=== PATIENT | female | born 1935 | race Caucasian/White ===

== ENCOUNTER 2019-05-21 14:38 | Inpatient (IN) | payer OTHER ==
[~2019-05-21] VITALS: Ht 165.1 cm; Wt 79.4 kg
[~2019-05-21 14:38] MED LIST changes: -ACET500 PO; -CORLANOR7.5 MG PO; -Calcium Carbon500 MG PO; -IBUP200 PO
[2019-05-21] MEDS ORDERED: CORLANOR7.5 MG PO (14:50)
[2019-05-21 18:27] LABS: Ferritin, Serum 24 ng/mL (8-252); Iron Serum 16 ug/dL (50-170)
--- NOTE | 2019-05-21 19:14 | NUR ---
SHIFT SUMMARY PT ARRIVED ON MEDICAL FLOOR AT 1830, DENIES PAIN. EATING DINNER, PT ORIENTED TO FLOOR, INDEPENDENT IN ROOM. CALL LIGHT IN REACH, TM
[2019-05-21] MEDS ORDERED: ACET500 PO (20:03)
[2019-05-21] MEDS ORDERED: IBUP200 PO (20:04)
[2019-05-21] MEDS ORDERED: Calcium Carbon500 MG PO (20:04)
[2019-05-21 20:09] LABS: BASOPHILS ABSOLUTE AUTO 0.07 K/mm3 (0.00-0.23); BASOPHILS PERCENT AUTO 1 % (0-2); EOSINOPHILS ABSOLUTE AUTO 0.12 K/mm3 (0.00-0.68); EOSINOPHILS PERCENT AUTO 1 % (0-6); Hematocrit 28.3 % (33.0-51.0); Hemoglobin 8.6 g/dL (11.5-16.0); IMMATURE GRAN ABSOLUTE AUTO 0.06 K/mm3 (0.00-0.10); IMMATURE GRAN PERCENT AUTO 1 % (0-1); LYMPHOCYTES ABSOLUTE AUTO 1.12 K/mm3 (0.84-5.20); LYMPHOCYTES PERCENT AUTO 12 % (21-46); MONOCYTES ABSOLUTE AUTO 0.61 K/mm3 (0.16-1.47); MONOCYTES PERCENT AUTO 7 % (4-13); Mean Corpuscular HGB 26.9 pg (26.0-34.0); Mean Corpuscular HGB Conc 30.4 g/dL (31.5-36.5); Mean Corpuscular Volume 88 fL (80-100); Mean Platelet Volume 9.8 fL (9.1-12.4); NEUTROPHILS PERCENT AUTO 79 % (41-73); Platelet Count 315 K/mm3 (150-400); RDW Coefficient Variation 14.6 % (11.7-14.2); RDW Standard Deviation 46.4 fL (35.1-46.3); White Blood Cell Count 9.38 K/mm3 (4.00-11.30)
--- NOTE | 2019-05-22 07:42 | NUR ---
SHIFT SUMMARY PATIENT ALERT AND ORIENTED. PACEMAKER HAS HEART PACED AT 81 ACCORDING TO GRAVEL HAULER. IV IN RIGHT AC PATENT AND FLUSHED. COMMUNITY YOUTH SECRETARY REPORTED LOW BP DURING MORNING VITALS, NOTIFIED CHARGE NURSE AND NOTIFIED ONCOMING NURSE OF THE ISSUE. BED IN LOWEST POSITION WITH WHEELS LOCKED. CALL LIGHT WITHIN REACH. REPORT GIVEN TO ONCOMING RN.
[2019-05-22 08:25] LABS: BASOPHILS ABSOLUTE AUTO 0.06 K/mm3 (0.00-0.23); BASOPHILS PERCENT AUTO 1 % (0-2); EOSINOPHILS ABSOLUTE AUTO 0.16 K/mm3 (0.00-0.68); EOSINOPHILS PERCENT AUTO 2 % (0-6); Hematocrit 26.3 % (33.0-51.0); IMMATURE GRAN ABSOLUTE AUTO 0.05 K/mm3 (0.00-0.10); IMMATURE GRAN PERCENT AUTO 1 % (0-1); LYMPHOCYTES ABSOLUTE AUTO 0.88 K/mm3 (0.84-5.20); LYMPHOCYTES PERCENT AUTO 11 % (21-46); MONOCYTES ABSOLUTE AUTO 0.52 K/mm3 (0.16-1.47); MONOCYTES PERCENT AUTO 6 % (4-13); Mean Corpuscular HGB 26.5 pg (26.0-34.0); Mean Corpuscular HGB Conc 30.4 g/dL (31.5-36.5); Mean Corpuscular Volume 87 fL (80-100); Mean Platelet Volume 9.7 fL (9.1-12.4); NEUTROPHILS ABSOLUTE AUTO 6.53 K/mm3 (1.96-9.15); NEUTROPHILS PERCENT AUTO 80 % (41-73); Platelet Count 302 K/mm3 (150-400); RDW Coefficient Variation 14.4 % (11.7-14.2); Red Blood Cell Count 3.02 M/mm3 (3.80-5.20)
[2019-05-22 08:48] LABS: Alanine Aminotransfer (ALT/SGP 18 U/L (12-78); Alk Phos 70 U/L (50-136); Anion Gap 7 mmol/L (6-16); Aspartate Aminotrans (AST/SGOT 15 U/L (12-37); Bilirubin, Total 0.7 mg/dL (0.1-1.0); Blood Urea Nitrogen 21 mg/dL (8-24); Bun/Creatinine Ratio 23.4 (12.0-20.0); CO2, Blood 27 mmol/L (21-32); Calcium, Blood 8.5 mg/dL (8.5-10.1); Chloride, Blood 106 mmol/L (98-108); Glomerular Filtration Rate >60 (60-); Glucose, Blood 88 mg/dL (70-99); Potassium, Blood 3.2 mmol/L (3.5-5.5); Sodium, Blood 140 mmol/L (136-145)
--- NOTE | 2019-05-22 11:51 | NUR ---
Echocardiogram completed.
--- NOTE | 2019-05-22 18:13 | NUR ---
Per admit trigger, I met with pt and family to offer information about advanced care planning. Dtr informs me that they have an Advanced Directive at home and plan on completeing it once pt is discharged. No concerns presented. Pt reports feeling hopeful for recovery. I will remain available.
--- NOTE | 2019-05-22 19:04 | NUR ---
SUMMARY: NO ACUTE CHANGE TODAY. VSS. A/O. PT REPORT SOB IS "MUCH BETTER", DENIED HAVING ANY TODAY. NO CHEST PAIN. TELE WNL. ECHO AND EKG REPEATED TODAY. DID TRANSFUSE 1 UNIT PRBC'S. PT TOLERATED WELL. NO ACUTE SAFETY CONCERNS AT THIS TIME.
[2019-05-23 05:39] LABS: BASOPHILS ABSOLUTE AUTO 0.08 K/mm3 (0.00-0.23); BASOPHILS PERCENT AUTO 1 % (0-2); EOSINOPHILS ABSOLUTE AUTO 0.25 K/mm3 (0.00-0.68); EOSINOPHILS PERCENT AUTO 3 % (0-6); Hematocrit 30.2 % (33.0-51.0); Hemoglobin 9.3 g/dL (11.5-16.0); IMMATURE GRAN ABSOLUTE AUTO 0.03 K/mm3 (0.00-0.10); IMMATURE GRAN PERCENT AUTO 0 % (0-1); LYMPHOCYTES ABSOLUTE AUTO 1.38 K/mm3 (0.84-5.20); LYMPHOCYTES PERCENT AUTO 17 % (21-46); MONOCYTES ABSOLUTE AUTO 0.65 K/mm3 (0.16-1.47); MONOCYTES PERCENT AUTO 8 % (4-13); Mean Corpuscular HGB 26.1 pg (26.0-34.0); Mean Corpuscular HGB Conc 30.8 g/dL (31.5-36.5); Mean Corpuscular Volume 85 fL (80-100); Mean Platelet Volume 9.7 fL (9.1-12.4); NEUTROPHILS ABSOLUTE AUTO 5.52 K/mm3 (1.96-9.15); NEUTROPHILS PERCENT AUTO 70 % (41-73); Platelet Count 322 K/mm3 (150-400); RDW Coefficient Variation 14.5 % (11.7-14.2); RDW Standard Deviation 44.7 fL (35.1-46.3); Red Blood Cell Count 3.57 M/mm3 (3.80-5.20); White Blood Cell Count 7.91 K/mm3 (4.00-11.30)
[2019-05-23 06:02] LABS: Bun/Creatinine Ratio 23.8 (12.0-20.0); Calcium, Blood 8.5 mg/dL (8.5-10.1); Creatinine, Blood 0.97 mg/dL (0.40-1.00); Magnesium, Blood 1.8 mg/dL (1.6-2.4); Potassium, Blood 3.4 mmol/L (3.5-5.5)
[2019-05-23 06:55] LABS: Stool Occult Blood Guaiac 1 Pos (Neg)
--- NOTE | 2019-05-23 07:30 | NUR ---
EOS: PT HAD AN UNEVENTFUL NIGHT TONIGHT. SHE DENIES PAIN, SOB, DIZZINESS, N/V/D, A VERY PLEASANT AND COOPERATIVE PATIENT. NO ACUTE CHANGES.
--- NOTE | 2019-05-23 13:21 | NUR ---
Pt. is doing much better , relaxed in bed and talking with her family visitors, offered prayers.
--- NOTE | 2019-05-23 18:52 | NUR ---
SHIFT SUMMARY PATIENT DENIES PAIN, NAUSEA, AND SHORTNESS OF BREATH. PATIENT UP INDEPENDENT IN ROOM. PATIENT OCCULT STOOL POSITIVE. PATIENT HAD CT OF ABDOMEN TODAY. FAMILY AT BEDSIDE. CALL LIGHT IN REACH.
[2019-05-24 05:35] LABS: BASOPHILS ABSOLUTE AUTO 0.07 K/mm3 (0.00-0.23); BASOPHILS PERCENT AUTO 1 % (0-2); EOSINOPHILS ABSOLUTE AUTO 0.27 K/mm3 (0.00-0.68); EOSINOPHILS PERCENT AUTO 4 % (0-6); Hematocrit 28.8 % (33.0-51.0); IMMATURE GRAN ABSOLUTE AUTO 0.03 K/mm3 (0.00-0.10); IMMATURE GRAN PERCENT AUTO 0 % (0-1); LYMPHOCYTES ABSOLUTE AUTO 1.36 K/mm3 (0.84-5.20); LYMPHOCYTES PERCENT AUTO 18 % (21-46); MONOCYTES ABSOLUTE AUTO 0.65 K/mm3 (0.16-1.47); MONOCYTES PERCENT AUTO 9 % (4-13); Mean Corpuscular HGB 26.6 pg (26.0-34.0); Mean Corpuscular HGB Conc 31.3 g/dL (31.5-36.5); Mean Corpuscular Volume 85 fL (80-100); Mean Platelet Volume 9.7 fL (9.1-12.4); NEUTROPHILS ABSOLUTE AUTO 5.18 K/mm3 (1.96-9.15); NEUTROPHILS PERCENT AUTO 69 % (41-73); Platelet Count 351 K/mm3 (150-400); RDW Coefficient Variation 14.5 % (11.7-14.2); RDW Standard Deviation 44.4 fL (35.1-46.3); Red Blood Cell Count 3.38 M/mm3 (3.80-5.20); White Blood Cell Count 7.56 K/mm3 (4.00-11.30)
--- NOTE | 2019-05-24 05:53 | NUR ---
SHIFT SUMMARY PT IS AN 84 Y/O FEMALE, ADMITTED FOR CHF EXACERBATION. SHE IS A&O X 4, AND INDEPENDENT IN THE ROOM. PT DENIED ANY COMPLAINTS OF PAIN, NAUSEA OR SOB AND SLEPT WELL DURING THE NIGHT. PT'S BP WAS LOW AT MIDNIGHT AND AM VITALS, IN THE 90S SYSTOLICALLY. ALL OTHER VITALS STABLE. NO OTHER ACUTE CHANGES IN PT CONDITION NOTED DURING THE NIGHT. WILL CONTINUE TO MONITOR AND TREAT PER EMAR UNTIL HAND OFF TO DAY SHIFT RN.
[2019-05-24 12:59] LABS: Stool Occult Blood Guaiac 1 Pos (Neg)
--- NOTE | 2019-05-24 14:11 | NUR ---
Pt. is doing well and may gfo home today offered prayers
[2019-05-24] MEDS ORDERED: ATOR20 (14:59)
[2019-05-24] MEDS ORDERED: Isosorbide Mono30 MG PO (15:00)
[2019-05-24] MEDS ORDERED: FERSU300 PO (15:00)
[2019-05-24] MEDS ORDERED: NITR.4SL SL (15:01)
[2019-05-24] MEDS ORDERED: CORLANOR7.5 MG PO (15:02)
[2019-05-24] MEDS ORDERED: MIDO5 PO (15:02)
[2019-05-24] MEDS ORDERED: MIRALAX17 GM PO (15:03)
[2019-05-24] MEDS ORDERED: TRAM50 PO (15:04)
[2019-05-24] MEDS ORDERED: PANT40 PO (15:05)
--- NOTE | 2019-05-24 15:53 | NUR ---
DISCHARGE DISCHARGE MEDICATIONS AND INSTRUCTIONS EXPLAINED TO PATIENT. PATIENT STATED UNDERSTANDING. FOLLOW UP WITH DR. RICHARDS SCHEDULED. YAO WILL CALL PATIENT AT HOME WITH FOLLOW UP APPOINTMENT. HOME MEDICATION RETURNED. IV REMOVED WITHOUT DIFFICULTY. BELONGINGS WITH PATIENT. PATIENT TRANSFERED TO PRIVATE VEHICLE VIA WHEELCHAIR.
== END 2019-05-24 15:50 | disposition home or self-care (01) | DRG 291 ==
LOC: ER 14:38 → MEDS 17:23
PROVIDERS: Internal Medicine Cardiovascular Disease; ADMIT Family Medicine
PROC: 30233N1 Transfusion of Nonautologous Red Blood Cells into Peripheral Vein, Percutaneous Approach (ICD-10-PCS; principal; 2019-05-22)
DX: I13.0 Hypertensive heart and chronic kidney disease with heart failure and stage 1 through stage 4 chronic kidney disease, or unspecified chronic kidney disease (principal); I50.23 Acute on chronic systolic (congestive) heart failure; E87.6 Hypokalemia; I42.0 Dilated cardiomyopathy; J44.9 Chronic obstructive pulmonary disease, unspecified; E03.9 Hypothyroidism, unspecified; Z87.891 Personal history of nicotine dependence; E78.5 Hyperlipidemia, unspecified; N18.3 Chronic kidney disease, stage 3 (moderate); I95.1 Orthostatic hypotension; I34.0 Nonrheumatic mitral (valve) insufficiency; K59.00 Constipation, unspecified; I95.9 Hypotension, unspecified; R19.5 Other fecal abnormalities
CPT/HCPCS: 36415; 74177; 80048; 80053; 82272; 82728; 82947; 83540; 83735; 84484; 85025; 86850; 86900; 86901; 86923; 93005; 93010; 94640; 94760; 96374; 96375; 99284-25; C8929; C9113; J1200; J1940; J7040; P9016; Q9957; Q9967

== ENCOUNTER → 2019-05-21 | Outpatient (CLI) | payer OTHER ==
[~2019-05-21] MED LIST: ACET500 PO; ALBU90OI INH; ALBU90OI6 INH; ASCO500 PO; Aspir 8181 MG PO; Aspirin EC81 MG PO; CALCIUM + VITA1 EACH PO; CARV25 PO; CARV6.25 PO; CORLANOR7.5 MG PO; Calcium Carbon500 MG PO; DOC250 PO; DULERA 100 MCG/13 GM; DULERA 200 MCG/13 GM INH; FISH1000 PO; FLUSAL2505 INH; HCTZ 25MG QD; IBUP200 PO; LEVOXYL88 MCG PO; LEVSOD125 PO; MULVITMIND PO; OMEG1CAP30 PO; POTASSIUM GLUC500 MG PO; SPIR25 PO; SUPER B COMPLE1 EACH PO; TOCO1000 PO; TORSE20 PO; TRAM50 PO; VALS80 PO; VITAMIN D-32000 UNI1 PO
[2019-05-21 13:32] LABS: BASOPHILS ABSOLUTE AUTO 0.08 K/mm3 (0.00-0.23); BASOPHILS PERCENT AUTO 1 % (0-2); EOSINOPHILS ABSOLUTE AUTO 0.09 K/mm3 (0.00-0.68); EOSINOPHILS PERCENT AUTO 1 % (0-6); Hematocrit 28.1 % (33.0-51.0); Hemoglobin 8.7 g/dL (11.5-16.0); IMMATURE GRAN ABSOLUTE AUTO 0.05 K/mm3 (0.00-0.10); IMMATURE GRAN PERCENT AUTO 1 % (0-1); LYMPHOCYTES ABSOLUTE AUTO 1.22 K/mm3 (0.84-5.20); LYMPHOCYTES PERCENT AUTO 13 % (21-46); MONOCYTES ABSOLUTE AUTO 0.89 K/mm3 (0.16-1.47); MONOCYTES PERCENT AUTO 9 % (4-13); Mean Corpuscular HGB 26.9 pg (26.0-34.0); Mean Corpuscular Volume 87 fL (80-100); Mean Platelet Volume 9.9 fL (9.1-12.4); NEUTROPHILS ABSOLUTE AUTO 7.42 K/mm3 (1.96-9.15); NEUTROPHILS PERCENT AUTO 76 % (41-73); Platelet Count 365 K/mm3 (150-400); RDW Coefficient Variation 14.7 % (11.7-14.2); RDW Standard Deviation 46.1 fL (35.1-46.3); Red Blood Cell Count 3.23 M/mm3 (3.80-5.20); White Blood Cell Count 9.75 K/mm3 (4.00-11.30)
[2019-05-21 13:46] LABS: Albumin, Blood 3.4 g/dL (3.4-5.0); Bilirubin, Total 0.6 mg/dL (0.1-1.0); Bun/Creatinine Ratio 17.7 (12.0-20.0); Calcium, Blood 8.5 mg/dL (8.5-10.1); Creatinine, Blood 1.13 mg/dL (0.40-1.00); Globulin, Blood 3.4 g/dL (2.2-4.0); Potassium, Blood 3.4 mmol/L (3.5-5.5); Total Protein, Blood 6.8 g/dL (6.4-8.2); Troponin I 0.185 ng/mL (0.000-0.040)
== END | disposition home or self-care (01) ==
LOC: LAB EV 13:28 → LAB SHORT 13:28
PROVIDERS: Physician Assistant
DX: R07.9 Chest pain, unspecified (principal); R06.00 Dyspnea, unspecified
CPT/HCPCS: 80053; 83880; 84484; 85025; 85379

== ENCOUNTER 2019-08-17 17:47 | Emergency (ER) | payer OTHER ==
[~2019-08-17] VITALS: Ht 167.6 cm; Wt 74.8 kg
[~2019-08-17 17:47] MED LIST changes: +ACET500 PO; +ATOR20; +CORLANOR7.5 MG PO; +Calcium Carbon500 MG PO; +FERSU300 PO; +IBUP200 PO; +Isosorbide Mono30 MG PO; +MIDO5 PO; +MIRALAX17 GM PO; +NITR.4SL SL; +PANT40 PO
== END 2019-08-17 18:49 | disposition home or self-care (01) ==
LOC: ER 17:47
DX: I42.0 Dilated cardiomyopathy (principal); I13.0 Hypertensive heart and chronic kidney disease with heart failure and stage 1 through stage 4 chronic kidney disease, or unspecified chronic kidney disease; I50.9 Heart failure, unspecified; N18.9 Chronic kidney disease, unspecified; D63.1 Anemia in chronic kidney disease; J44.9 Chronic obstructive pulmonary disease, unspecified; Z79.899 Other long term (current) drug therapy; Z79.51 Long term (current) use of inhaled steroids; Z79.82 Long term (current) use of aspirin
CPT/HCPCS: 99283

== ENCOUNTER 2019-09-22 17:11 | Inpatient (IN) | payer OTHER ==
[~2019-09-22] VITALS: Ht 165.1 cm; Wt 80.0 kg
[~2019-09-22 17:11] MED LIST changes: -Aspirin EC81 MG PO; -DULERA 200 MCG/13 GM INH; -FERSU300 PO; -Isosorbide Mono30 MG PO; -LEVOXYL88 MCG PO; -MIDO5 PO; -NITR.4SL SL; -PANT40 PO; -TORSE20 PO
[2019-09-22 18:42] LABS: BASOPHILS ABSOLUTE AUTO 0.11 K/mm3 (0.00-0.23); BASOPHILS PERCENT AUTO 1 % (0-2); EOSINOPHILS ABSOLUTE AUTO 0.15 K/mm3 (0.00-0.68); EOSINOPHILS PERCENT AUTO 2 % (0-6); Hematocrit 42.7 % (33.0-51.0); Hemoglobin 13.2 g/dL (11.5-16.0); IMMATURE GRAN ABSOLUTE AUTO 0.04 K/mm3 (0.00-0.10); IMMATURE GRAN PERCENT AUTO 0 % (0-1); LYMPHOCYTES ABSOLUTE AUTO 1.16 K/mm3 (0.84-5.20); LYMPHOCYTES PERCENT AUTO 13 % (21-46); MONOCYTES ABSOLUTE AUTO 0.81 K/mm3 (0.16-1.47); MONOCYTES PERCENT AUTO 9 % (4-13); Mean Corpuscular HGB 24.8 pg (26.0-34.0); Mean Corpuscular HGB Conc 30.9 g/dL (31.5-36.5); Mean Corpuscular Volume 80 fL (80-100); Mean Platelet Volume 10.5 fL (9.1-12.4); NEUTROPHILS ABSOLUTE AUTO 6.91 K/mm3 (1.96-9.15); NEUTROPHILS PERCENT AUTO 75 % (41-73); Platelet Count 260 K/mm3 (150-400); RDW Coefficient Variation 18.5 % (11.7-14.2); RDW Standard Deviation 52.8 fL (35.1-46.3); Red Blood Cell Count 5.33 M/mm3 (3.80-5.20); White Blood Cell Count 9.18 K/mm3 (4.00-11.30)
[2019-09-22 19:03] LABS: Albumin, Blood 3.5 g/dL (3.4-5.0); Albumin/Globulin Ratio 1.2 (0.8-1.8); Bilirubin, Total 0.7 mg/dL (0.1-1.0); Bun/Creatinine Ratio 20.4 (12.0-20.0); Creatinine, Blood 1.57 mg/dL (0.40-1.00); Potassium, Blood 3.3 mmol/L (3.5-5.5); Total Protein, Blood 6.5 g/dL (6.4-8.2); Troponin I 0.049 ng/mL (0.000-0.040)
[2019-09-22] MEDS ORDERED: SPIR25 PO (19:31)
[2019-09-22] MEDS ORDERED: Aspirin EC81 MG PO (19:31)
[2019-09-22] MEDS ORDERED: LEVSOD100 PO (19:32)
[2019-09-22] MEDS ORDERED: ALBU90OI6 INH (19:33)
[2019-09-22] MEDS ORDERED: TORSE20 PO (19:33)
[2019-09-22] MEDS ORDERED: DULERA 200 MCG-13 GM INH (19:35)
[2019-09-22] MEDS ORDERED: FERSU300 PO (19:36)
[2019-09-22] MEDS ORDERED: ISOSORBIDE MONO60 MG PO (19:36)
[2019-09-22] MEDS ORDERED: CORLANOR7.5 MG PO (19:37)
[2019-09-22] MEDS ORDERED: NITR.4SL SL (19:37)
[2019-09-22] MEDS ORDERED: PANT40 PO (19:41)
--- NOTE | 2019-09-22 20:30 | NUR ---
REPORT RECIEVED FROM BEN Barksdale RN
[2019-09-22] MEDS ORDERED: Vitamin D2000 UNIT PO (21:18)
[2019-09-22] MEDS ORDERED: SULTRIDS PO (21:33)
[2019-09-22] MEDS ORDERED: BENEFIBER1 EAC2 PO (22:30)
--- NOTE | 2019-09-22 22:38 | NUR ---
ASSUMED CARE OF PATIENT AT [facility] 2109 FROM ED RN BEN Slater. PATIENT ARRIVED TO UNIT VIA STRETCHER; TRANSFER W/ ONE ASSIST FROM ED TO PCU STRETCHER. PATIENT ALERT AND ORIENTED X4; FORGETFUL AT TIMES; UNABLE TO GIVE SOME MEDICATION INFORMATION; CALL PLACED TO SON WHO WILL SEND A PICTURE OF MEDICATIONS TO MOTHERS PHONE; MED REC COMPLETED FOR NOW. PATIENT DENIES PAIN, NUMBNESS, TINGLING, DIZZINESS OR NAUSEA. 100% PACED ON TELE; OXYGEN SATURATION ABOVE 90% ON 1LPM VIA NC WHEN AMBULATION; TAKES A FEW MINUTES TO RECOVER AND ABLE TO MAINTAIN OXYGEN SATURATION ABOVE 90% ON ROOM AIR AT REST. PATIENT REPORTS SHE IS ABLE TO NORMALLY AMBULATION FROM CHAIR TO BATHROOM W/ MINIMAL SOB BUT TOOK 5 HOURS TO RECOVER BEFORE COMING INTO HOSPITAL. PATIENT REPORTS SON IS MOVING IN WITH HER TO HELP CARE FOR HER; USES A WALKER AT HOME. ADMISSION COMPLETE. PIV S/L. PATIENT REPORTS SHE URINATED SHORTLY BEFORE COMING UP TO PCU. CALL PLACED TO JEAN MARIE ROBLERO TO REPORT PATIENT REQUEST FOR BACTRIM FOR UTI DX ON 09/18 AND BENEFIBER NO BM SINCE 09/18. ORDERS FOR KEFLEX BID DUE TO PATIENT'S KIDNEY FUNCTION, UA AND BENEFIBER DAILY. PATIENT CURRENTLY RESTING IN BED; CALL LIGHT IN REACH; BED IN LOWEST POSISTION; BED ALARM ON; WILL CONTINUE TO MONITOR AND ASSES UNTIL END OF SHIFT.
[2019-09-23 05:34] LABS: Source, Urine Clean Catch
[2019-09-23] MEDS ORDERED: PANT40 PO (05:34)
--- NOTE | 2019-09-23 05:36 | NUR ---
PATIENT REPORTS SHE FEELS A LITTLE BETTER THIS MORNING; REPORTS SHE SLEPT WELL. PATIENT SLEPT ABOUT SIX HOURS. UA SENT. VSS.
--- NOTE | 2019-09-23 05:36 | NUR ---
MED REC: UPDATED PER SON HOSSEIN SENDING PICTURES OF PILL BOTTLES TO PATIENT'S PHONE. PATIENT REPORTED SHE DIDNT TAKE SOME MEDS BUT THE SAME MEDS WERE IN THE PICTURES SENT CURRENT PRESCRIPTION BY THE SON.
[2019-09-23 05:37] LABS: BASOPHILS ABSOLUTE AUTO 0.09 K/mm3 (0.00-0.23); BASOPHILS PERCENT AUTO 1 % (0-2); EOSINOPHILS ABSOLUTE AUTO 0.12 K/mm3 (0.00-0.68); EOSINOPHILS PERCENT AUTO 1 % (0-6); Hematocrit 40.7 % (33.0-51.0); Hemoglobin 12.5 g/dL (11.5-16.0); IMMATURE GRAN ABSOLUTE AUTO 0.04 K/mm3 (0.00-0.10); IMMATURE GRAN PERCENT AUTO 1 % (0-1); LYMPHOCYTES ABSOLUTE AUTO 1.39 K/mm3 (0.84-5.20); LYMPHOCYTES PERCENT AUTO 16 % (21-46); MONOCYTES ABSOLUTE AUTO 0.75 K/mm3 (0.16-1.47); MONOCYTES PERCENT AUTO 9 % (4-13); Mean Corpuscular HGB 24.6 pg (26.0-34.0); Mean Corpuscular HGB Conc 30.7 g/dL (31.5-36.5); Mean Corpuscular Volume 80 fL (80-100); Mean Platelet Volume 10.7 fL (9.1-12.4); NEUTROPHILS ABSOLUTE AUTO 6.11 K/mm3 (1.96-9.15); NEUTROPHILS PERCENT AUTO 72 % (41-73); Platelet Count 257 K/mm3 (150-400); RDW Coefficient Variation 18.1 % (11.7-14.2); RDW Standard Deviation 52.5 fL (35.1-46.3); Red Blood Cell Count 5.09 M/mm3 (3.80-5.20)
[2019-09-23 05:37] LABS: Bilirubin, Urine Neg (Neg); Blood, Urine Neg (Neg); Glucose Qualitative, Urine Neg (Neg); Ketones, Urine Neg (Neg); Leukocyte Esterase, Urine Neg (Neg); Nitrite, Urine Neg (Neg); Protein, Urine Neg (Neg); Specific Gravity, Urine 1.015 (1.003-1.022); Urobilinogen, Urine NORM (Normal)
[2019-09-23 05:46] LABS: Appearance, Urine Clear (Clear); Color, Urine Yellow (P-Yellow)
[2019-09-23 06:03] LABS: Bun/Creatinine Ratio 20.6 (12.0-20.0); Calcium, Blood 8.7 mg/dL (8.5-10.1); Creatinine, Blood 1.36 mg/dL (0.40-1.00); Troponin I 0.058 ng/mL (0.000-0.040)
--- NOTE | 2019-09-23 18:55 | NUR ---
SHIFT SUMMARY NO ACUTE CHANGES NOTED THROUGH THE DAY. VSS, ON RA, 1 ASSIST TO BSC. CARDIOLOGY HAS BEEN CONSULTED & SPOKE WITH PT. TOLERATING PO INTAKE, VOIDING WNL. HEATING PAD & RECLYNER FOR BACK PAIN. NO OTHER CHANGES. REPORT GIVEN TO MAHENDRA TAYLOR. CALL LIGHT IN REACH
--- NOTE | 2019-09-23 22:48 | NUR ---
ASSUMED CARE OF PATIENT AT [facility] 190 FROM MARY Barksdale, BRANDON. AUTOMATIC QUILLING MACHINE OPERATOR ALIS Neil ASSISTING WITH CARE. PATIENT ALERT AND ORIENTED X4; FORGETFUL AT TIMES. SBA TO BEDSIDE COMMODE. PATIENT DENIES PAIN, NUMBNESS, TINGLING, DIZZINESS OR NAUSEA. 100% PACED ON TELE; OXYGEN SATURATION ABOVE 90% ON 1LPM VIA NC; PATIENT ABLE TO SPEAK IN FULL SENTENCES TONIGHT COMPARED TO LAST NIGHT 2-3 WORDS AT TIME; NO DYSPNEIC WITH AMBULATION. SBA TO BEDSIDE COMMODE. PIV S/L. PATIENT REPORTED THAT SHE WOULD LIKE TO CHANGE HER CODE STATUS AFTER DISCUSSING IT WITH HER GRANDDAUGHTER AND WITH DR. VARGAS EARLIER IN THE DAY. PATIENT REQUESTED TO BED DNR. CALL PLACED TO JEAN MARIE ROBLERO; ORDERS RECIEVED. PATIENT CURRENTLY RESTING IN BED; CALL LIGHT IN REACH; BED IN LOWEST POSISTION; BED ALARM ON; WILL CONTINUE TO MONITOR AND ASSESS UNTIL END OF SHIFT.
[2019-09-24 04:10] LABS: Anion Gap 4 mmol/L (6-16); Blood Urea Nitrogen 22 mg/dL (8-24); CO2, Blood 30 mmol/L (21-32); Calcium, Blood 8.6 mg/dL (8.5-10.1); Chloride, Blood 106 mmol/L (98-108); Creatinine, Blood 1.05 mg/dL (0.40-1.00); Glomerular Filtration Rate 53 (60-); Glucose, Blood 91 mg/dL (70-99); Phosphorus, Blood 3.1 mg/dL (2.5-4.9); Potassium, Blood 3.2 mmol/L (3.5-5.5); Sodium, Blood 140 mmol/L (136-145)
--- NOTE | 2019-09-24 06:09 | NUR ---
NO ACUTE CHANGES THROUGHOUT THE NIGHT. VSS. PATIENT STATES SHE DID NOT SLEEP WELL. PT UP TO BEDSIDE COMMODE AND BATHROOM WITH WALKER AND MINIMAL ASSIST. PT ON 1-2 L OXYGEN VIA NC. CALL LIGHT WITHIN REACH. BED IN LOWEST POSITION. WILL CONTINUE TO MONITOR UNTIL END OF SHIFT.
[2019-09-24 07:39] LABS: International Normalized Ratio 1.02; Prothrombin Time Results 10.9 Sec (9.7-11.5)
--- NOTE | 2019-09-24 11:25 | NUR ---
PT TAKEN TO PLANT MACHINIST. WILL AWAIT RETURN
--- NOTE | 2019-09-24 13:30 | NUR ---
PT RETURNED. VS STABLE. RIGHT FEMORAL SITE FREE FROM BLEEDING, BRUISING, OR HEMATOMA. PT LYING FLAT. WILL CONTINUE TO MONITOR CLOSELY.
--- NOTE | 2019-09-24 17:58 | NUR ---
SHIFT SUMMARY PT ALERT AND ORIENTED. VS STABLE. O2 SATS REMAIN ABOVE 90% ON 2L NC. PT DENIES ANY PAIN. RIGHT FEMORAL SITE FREE FROM ANY HEMATOMA, BRUISING, OR BLEEDING. RIGHT BRACHIAL SITE WNL WITH JASON DRESSING IN PLACE. PT SITTING UP EATING DINNER AT THIS TIME. WILL CONTINUE TO MONITOR AND REPORT TO ONCOMING RN. CALL LIGHT IN REACH.
--- NOTE | 2019-09-24 19:32 | NUR ---
PT ALERT AND ORIENTED. PT HAD ANGIOGRAM DONE TODAY WITH ACCESS THROUGH THE R FEMORAL SITE AND R BRACHIAL VEIN. R FEMORAL SITE HAS NO HEMATOMA FORMATION OR REDNESS. R BRACHIAL SITE HAS NO HEMATOMA FORMATION OR REDNESS. PT RESTING AT THIS TIME. REPORT GIVEN TO ONCOMING STAFF. VS STABLE. O2 SAT ABOVE 90% ON 2 L OF O2 VIA NASAL CANULA.
[2019-09-25 04:17] LABS: Albumin, Blood 2.8 g/dL (3.4-5.0); Anion Gap 4 mmol/L (6-16); Blood Urea Nitrogen 17 mg/dL (8-24); Bun/Creatinine Ratio 18.8 (12.0-20.0); CO2, Blood 31 mmol/L (21-32); Calcium, Blood 8.3 mg/dL (8.5-10.1); Chloride, Blood 105 mmol/L (98-108); Glomerular Filtration Rate >60 (60-); Glucose, Blood 96 mg/dL (70-99); Magnesium, Blood 2.2 mg/dL (1.6-2.4); Sodium, Blood 140 mmol/L (136-145)
--- NOTE | 2019-09-25 06:36 | NUR ---
SHIFT SUMMARY NO ACUTE CHANGES T/O THE NIGHT. PATIENT SLEPT WELL. PT AMBULATES WITH MINIMAL ASSISTANCE TO BATHROOM WITH 2L O2 VIA NC, DYSPNEA ON EXERTION. PT DENIES CHEST PAIN AT THIS TIME. PT REPORTS HIP PAIN, HAS HEAT PAD FOR RELIEF. CALL LIGHT WITHIN REACH.
--- NOTE | 2019-09-25 17:46 | NUR ---
SHIFT SUMMARY PT ALERT AND ORIENTED. VS STABLE. BP STABLE. PT DENIES ANY PAIN. O2 SATS REMAIN ABOVE 90% ON 2L NC. UNABLE TO TITRATE PT TO RA AND HOME O2 EVALUATION ORDERED FOR TOMORROW PRIOR TO DISCHARGE. RIGHT GROIN SITE WNL. PT ABLE TO AMBULATE TO BATHROOM WITH WALKER AND SBA. WILL CONTINUE TO MONITOR AND REPORT TO ONCOMING RN. CALL LIGHT IN REACH.
--- NOTE | 2019-09-25 17:57 | NUR ---
SHIFT SUMMARY PT ALERT AND ORIENTED. VS STABLE. OXYGEN SATURATION ABOVE 92% ON 2 L O2 VIA NC. PT BECOMES SOB UPON EXERTION. PT ABLE TO AMBULATE BY SELF WITH WALKER.FEMORAL AND BRACHIAL SITE WINL. CALL LIGHT WITHIN REACH. WILL CONTINUE TO MONITOR.
[2019-09-26 05:08] LABS: Albumin, Blood 2.8 g/dL (3.4-5.0); Anion Gap 4 mmol/L (6-16); Blood Urea Nitrogen 20 mg/dL (8-24); Bun/Creatinine Ratio 18.5 (12.0-20.0); CO2, Blood 31 mmol/L (21-32); Calcium, Blood 8.5 mg/dL (8.5-10.1); Chloride, Blood 104 mmol/L (98-108); Creatinine, Blood 1.08 mg/dL (0.40-1.00); Glomerular Filtration Rate 52 (60-); Glucose, Blood 94 mg/dL (70-99); Magnesium, Blood 2.2 mg/dL (1.6-2.4); Phosphorus, Blood 3.6 mg/dL (2.5-4.9); Potassium, Blood 4.2 mmol/L (3.5-5.5); Sodium, Blood 139 mmol/L (136-145)
--- NOTE | 2019-09-26 05:41 | NUR ---
SHIFT SUMMARY PT A&O; PLEASANT & COMPLIANT W/ CARE; SOFT BP; PT REFUSED 2100 DOSE OF ENTRESTO; STATES SHE DOES NOT WANT TO TAKE W/ CURRENT BP AND EXPRESSES CONCERN W/ MEDICATION SHE HAS TRIED IT IN THE PAST; FULLY PACED ON TELE; PT REFUSED LIPITOR; PT STATES LIPITOR MAKES HER JOINTS HURT AND SHE HAS TRIED IT IN THE PAST; STATES CARIOLOGIST HAD STATED NOT TO TAKE; O2 SATS >94 ON 2L NC; PT STATES O2 HAS HELPED; CALLS APPROPRIATELY; SBA FOR BATHROOM PRIVILEGES W/ FWW; CALL LIGHT IN REACH; BED IN LOWEST POSITION; WILL CONTINUE TO MONITOR CLOSELY UNTIL HAND OFF TO DAY SHIFT RN.
--- NOTE | 2019-09-26 19:24 | NUR ---
SHIFT SUMMARY PT A&Ox4; CALM AND COOPERATIVE WITH CARE. PT UP IN CHAIR WITH FEET ELEVATED FOR MAJORITY OF SHIFT. PT SOB WITH EXERTION, PT STARTED ON RA THIS AM, DESATURATED TO MID 80'S WITH SPEECH AND WALKING, PLACED 2L O2 VIA NC, SPO2 >90% FOR REMAINDER OF SHIFT. PT DENIES PAIN, CHEST PAIN/PRESSURE, NAUSEA AND DIZZINESS T/O SHIFT. PT BP 89/56, MEDICATED WITH SCHEDULED MIDODRINE, BP TRENDING UP. OTHER VSS. PT REFUSING ENTRESTO, NOTIIFED DR BERRIOS AND DR RICHARDS; NEW ORDERS TO DISCONTINUE MEDICATION, PT STATES SHE HAS TAKEN IT IN THE PAST AND DOES NOT LIKE THE WAY IT MAKES HER FEEL. PER DR JOINER, PARAMETERS PLACED ON CARDIAC MEDICATIONS PER TELEPHONE ORDERS. NO OTHER ACUTE CHANGES NOTED. REPORT GIVEN TO ONCOMING RN.
--- NOTE | 2019-09-27 02:51 | NUR ---
ASSUMED CARE OF PATIENT AT [facility] 191 FROM ALIS Flor RN. PATIENT ALERT AND ORIENTED X4; FORGETFUL AT TIMES. SBA W/ FWW TO BATHROOM. PATIENT DENIES PAIN, NUMBNESS, TINGLING, DIZZINESS OR NAUSEA. 100% PACED ON TELE; OXYGEN SATURATION ABOVE 90% ON 1-2LPM VIA NC. SBA TO BEDSIDE COMMODE. PIV S/L. 3X ANGIO SITES WNL. PATIENT'S BP IN 90'S; REPORTS FROM TAKING ENTRESTO. PATIENT CURRENTLY RESTING IN BED; CALL LIGHT IN REACH; BED IN LOWEST POSISTION; BED ALARM ON; WILL CONTINUE TO MONITOR AND ASSESS UNTIL END OF SHIFT.
--- NOTE | 2019-09-27 06:23 | NUR ---
PATIENT SLEPT ABOUT EIGHT HOURS LAST NIGHT. BP IMPROVED T/O THE NIGHT. NO ACUTE CHANGES TO REPORT. WILL CONTINUE TO MONITOR AND ASSESS UNTIL END OF SHIFT.
[2019-09-27] MEDS ORDERED: FERSU300 PO (14:24)
--- NOTE | 2019-09-27 15:36 | NUR ---
A&Ox4. TIMOTEO. LUNG SOUNDS CLEAR IN ALL OCHOA. PT REPORTS MILD DYSPNEA. INCREASED DYSPNEA ON EXERTION. ON TELE. SINUS RHYTHMN W/ BBB @ 95 BPM. DENIES CP. PULSES FOUND USING DOPPLER. ABD SOFT AND NON-TENDER. BOWEL TONES HEAR IN ALL QUADRANTS. LAST BM TODAY. DENIES PROBLEMS URINATING. AMBULATES AROUND ROOM W/ WALKER ON OWN. PROCEDURAL WOUNDS ON RA AT THE WRIST AND AC. IV IN LA PATENT. PT SITTING IN CHAIR AT BEDSIDE WATCHING TV. CALL LIGHT W/IN REACH.
--- NOTE | 2019-09-27 15:44 | NUR ---
PT GIVEN DISCHARGE INSTRUCTIONS. PT INFORMED OF MEDICATION CHANGES AND SCHEDULED APPOINTMENTS. PT ALSO INFORMED TO CALL PCP [facility]. PT'S SON TO DRIVE THEM HOME. PT TAKEN OUT VIA WC.
[2019-09-28] MEDS ORDERED: ATOR40TA PO (22:20)
[2019-09-28] MEDS ORDERED: METO25ER PO (22:21)
[2019-09-28] MEDS ORDERED: MIDO5 PO (22:21)
[2019-09-28] MEDS ORDERED: CORLANOR7.5 MG PO (22:25)
== END 2019-09-27 14:47 | disposition home health service (06) | DRG 286 ==
LOC: ER 17:11 → PCU 20:33
PROVIDERS: Emergency Medicine; Internal Medicine Cardiovascular Disease; Internal Medicine Endocrinology, Diabetes & Metabolism; Nurse Practitioner Acute Care; ADMIT Family Medicine
PROC: B2111ZZ Fluoroscopy of Multiple Coronary Arteries using Low Osmolar Contrast (ICD-10-PCS; principal; 2019-09-24)
PROC: 4A023N8 Measurement of Cardiac Sampling and Pressure, Bilateral, Percutaneous Approach (ICD-10-PCS; 2019-09-24)
PROC: B41BZZZ Fluoroscopy of Other Intra-Abdominal Arteries (ICD-10-PCS; 2019-09-24)
DX: I13.0 Hypertensive heart and chronic kidney disease with heart failure and stage 1 through stage 4 chronic kidney disease, or unspecified chronic kidney disease (principal); I50.23 Acute on chronic systolic (congestive) heart failure; Z79.82 Long term (current) use of aspirin; I42.0 Dilated cardiomyopathy; I34.0 Nonrheumatic mitral (valve) insufficiency; J44.9 Chronic obstructive pulmonary disease, unspecified; Z96.642 Presence of left artificial hip joint; Z87.891 Personal history of nicotine dependence; Z95.0 Presence of cardiac pacemaker; N18.3 Chronic kidney disease, stage 3 (moderate); E87.6 Hypokalemia; K21.9 Gastro-esophageal reflux disease without esophagitis; I25.10 Atherosclerotic heart disease of native coronary artery without angina pectoris; Z99.81 Dependence on supplemental oxygen; I95.9 Hypotension, unspecified
CPT/HCPCS: 36415; 71045; 80048; 80053; 80069; 81003; 83735; 83880; 84443; 84484; 85025; 85610; 86850; 86900; 86901; 93005; 93010; 93460; 94640; 94760; 94761; 96374; 97162; 97165; 97530; 97535; 99152; 99153; 99285-25; A9270; A9270-GY; C1769; C1894; C8929; G0278; J0690; J1644; J1650; J1940; J2250; J3010; J7030; J7040; Q9957; Q9967

== ENCOUNTER 2020-06-27 12:58 | Day surgery (SDC) | payer OTHER, SELFPAY ==
[~2020-06-27] VITALS: Ht 165.1 cm; Wt 72.4 kg
[~2020-06-27 12:58] MED LIST changes: +ATOR40TA PO; +Aspirin EC81 MG PO; +BENEFIBER1 EAC2 PO; +DULERA 200 MCG-13 GM INH; +FERSU300 PO; +ISOSORBIDE MONO60 MG PO; +LEVSOD100 PO; +LOSA25 PO; +METO25ER PO; +MIDO5 PO; +NITR.4SL SL; +PANT40 PO; +SULTRIDS PO; +TORSE20 PO; +Vitamin D2000 UNIT PO
[2020-06-27] MEDS ORDERED: LANOXIN125 MCG PO (13:32)
--- NOTE | 2020-06-27 15:38 | NUR ---
06/27/20 1538 SARAH WEN 3.5ML SALINE INJECTED INTO ONE ASCENDING COLON POLYP.
== END 2020-06-27 15:40 | disposition home or self-care (01) ==
LOC: ORSCSDS 12:58
PROVIDERS: Internal Medicine Gastroenterology
PROC: 0DBP8ZX Excision of Rectum, Via Natural or Artificial Opening Endoscopic, Diagnostic (ICD-10-PCS; principal; 2020-06-27 14:15)
PROC: 0DBL8ZX Excision of Transverse Colon, Via Natural or Artificial Opening Endoscopic, Diagnostic (ICD-10-PCS; principal; 2020-06-27 14:15)
PROC: 0DBK8ZX Excision of Ascending Colon, Via Natural or Artificial Opening Endoscopic, Diagnostic (ICD-10-PCS; principal; 2020-06-27 14:15)
PROC: 0DBN8ZX Excision of Sigmoid Colon, Via Natural or Artificial Opening Endoscopic, Diagnostic (ICD-10-PCS; principal; 2020-06-27 14:15)
PROC: 0DBH8ZX Excision of Cecum, Via Natural or Artificial Opening Endoscopic, Diagnostic (ICD-10-PCS; principal; 2020-06-27 14:15)
PROC: 0DBM8ZX Excision of Descending Colon, Via Natural or Artificial Opening Endoscopic, Diagnostic (ICD-10-PCS; principal; 2020-06-27 14:15)
DX: K92.1 Melena (principal); R10.11 Right upper quadrant pain; D12.2 Benign neoplasm of ascending colon; D12.0 Benign neoplasm of cecum; D12.3 Benign neoplasm of transverse colon; D12.4 Benign neoplasm of descending colon; K62.1 Rectal polyp; I10 Essential (primary) hypertension; J44.9 Chronic obstructive pulmonary disease, unspecified; K21.9 Gastro-esophageal reflux disease without esophagitis; E03.9 Hypothyroidism, unspecified; Z95.0 Presence of cardiac pacemaker; Z79.899 Other long term (current) drug therapy; Z79.82 Long term (current) use of aspirin; K57.30 Diverticulosis of large intestine without perforation or abscess without bleeding; K64.8 Other hemorrhoids
CPT/HCPCS: 88305; J1100; J1885; J2405; J2704; J7120

== ENCOUNTER → 2022-08-02 | Outpatient (CLI) | payer OTHER ==
[~2022-08-02] MED LIST changes: +ALDACTONE25 MG PO; +BENZ100A PO; +Breo Ellipta 200-25 INH; +ENTRESTO 24 MG1 EAC2 PO; +GUAI600T33 PO; +IPRAT-ALBUT 0.5-3 ML INH; +LANOXIN125 MCG PO; +LEVO-T88 MC1 PO; +PRED20 PO; +TORS10 PO; +Tamiflu30 MG PO; +Ventolin/Proventil INH
[2022-08-03 08:05] LABS: Stool Occult Bld Immuno 1 Negative (NEGATIVE)
== END | disposition home or self-care (01) ==
LOC: LAB 11:30 → LAB SHORT 11:30
PROVIDERS: Family Medicine
DX: D64.9 Anemia, unspecified (principal); R19.5 Other fecal abnormalities
CPT/HCPCS: 82274

== ENCOUNTER 2023-04-20 08:13 | Day surgery (SDC) | payer OTHER ==
[~2023-04-20] VITALS: Ht 165.1 cm; Wt 80.4 kg
[~2023-04-20 08:13] MED LIST changes: -ENTRESTO 24 MG1 EAC2 PO; +ENTRESTO 49 MG1 EAC7 PO; +IPRAT-ALBUT 0.5-3 ML NEB; -LEVO-T88 MC1 PO; +LEVOTHYROXINE100 M10 PO; +LEVOTHYROXINE88 MC9 PO; -TORS10 PO; +TRELEGY ELLIPT1 EACH; +Vitamin B Comple1 EA PO; +ZYRTEC10 M2 PO
--- NOTE | 2023-04-20 10:12 | NUR ---
04/20/23 1012 AnnitaMarielle PT IS LAYING LATERAL WITH RIGHT SIDE DOWN, PILLOW BETWEEN LEGS AND ARMS. ARMS HAVE A RIGHT SIDE ARMBOARD UNDER THEM WHICH HER ARMS ARE SECURED TO. TWO SAFETY BELTS ARE OVER HER LEGS AND ABDOMEN.
[2023-04-20 12:44] VITALS: BP 130/60
== END 2023-04-20 11:45 | disposition home or self-care (01) ==
LOC: ORSCSDS 08:13
PROVIDERS: Orthopaedic Surgery
PROC: 0SPB04Z Removal of Internal Fixation Device from Left Hip Joint, Open Approach (ICD-10-PCS; principal; 2023-04-20 09:45)
DX: T84.9XXA Unspecified complication of internal orthopedic prosthetic device, implant and graft, initial encounter (principal); Z96.9 Presence of functional implant, unspecified; I10 Essential (primary) hypertension; I48.91 Unspecified atrial fibrillation; J44.9 Chronic obstructive pulmonary disease, unspecified; Z79.899 Other long term (current) drug therapy; Z79.82 Long term (current) use of aspirin
CPT/HCPCS: J0171; J0690; J2250; J2371; J2704; J2795; J3010; J7120

== ENCOUNTER → 2023-08-22 | Outpatient (CLI) | payer OTHER ==
[~2023-08-22] MED LIST changes: +AMOCLA875 PO; +AZIT500 PO; +BUME1 PO; +CELE100 PO; +DELTASONE20 MG PO; +K-TAB ER20 ME1 PO
[2023-08-22 10:31] LABS: BASOPHILS ABSOLUTE AUTO 0.09 K/mm3 (0.00-0.23); BASOPHILS PERCENT AUTO 1 % (0-2); EOSINOPHILS ABSOLUTE AUTO 0.11 K/mm3 (0.00-0.68); EOSINOPHILS PERCENT AUTO 1 % (0-6); Hematocrit 35.1 % (33.0-51.0); Hemoglobin 11.1 g/dL (11.5-16.0); IMMATURE GRAN ABSOLUTE AUTO 0.04 K/mm3 (0.00-0.10); IMMATURE GRAN PERCENT AUTO 0 % (0-1); LYMPHOCYTES ABSOLUTE AUTO 1.45 K/mm3 (0.84-5.20); LYMPHOCYTES PERCENT AUTO 16 % (21-46); MONOCYTES ABSOLUTE AUTO 0.54 K/mm3 (0.16-1.47); MONOCYTES PERCENT AUTO 6 % (4-13); Mean Corpuscular HGB 26.7 pg (26.0-34.0); Mean Corpuscular HGB Conc 31.6 g/dL (31.5-36.5); Mean Corpuscular Volume 85 fL (80-100); Mean Platelet Volume 10.1 fL (9.1-12.4); NEUTROPHILS PERCENT AUTO 75 % (41-73); Platelet Count 284 K/mm3 (150-400); RDW Coefficient Variation 14.5 % (11.7-14.2); RDW Standard Deviation 44.7 fL (35.1-46.3); Red Blood Cell Count 4.15 M/mm3 (3.80-5.20); White Blood Cell Count 8.93 K/mm3 (4.00-11.30)
[2023-08-22 10:40] LABS: Albumin, Blood 3.5 g/dL (3.4-5.0); Bilirubin, Total 0.5 mg/dL (0.1-1.0); Bun/Creatinine Ratio 33.6 (12.0-20.0); Calcium, Blood 9.8 mg/dL (8.5-10.1); Creatinine, Blood 1.13 mg/dL (0.40-1.00); Globulin, Blood 3.6 g/dL (2.2-4.0); Magnesium, Blood 1.9 mg/dL (1.6-2.4); Potassium, Blood 4.4 mmol/L (3.5-5.5); Total Protein, Blood 7.1 g/dL (6.4-8.2)
== END | disposition home or self-care (01) ==
LOC: LAB 10:27 → LAB SHORT 10:27
PROVIDERS: Physician Assistant Medical
DX: R42 Dizziness and giddiness (principal)
CPT/HCPCS: 80053; 83735; 85025

== ENCOUNTER 2023-08-23 07:42 | Emergency (ER) | payer OTHER ==
[~2023-08-23] VITALS: Ht 167.6 cm; Wt 75.8 kg
[2023-08-23 12:00] VITALS: BP 106/41
== END 2023-08-23 12:56 | disposition short-term general hospital (02) ==
LOC: ER 07:42
DX: D62 Acute posthemorrhagic anemia (principal); I95.9 Hypotension, unspecified; D72.829 Elevated white blood cell count, unspecified; E03.9 Hypothyroidism, unspecified; J44.9 Chronic obstructive pulmonary disease, unspecified; Z87.891 Personal history of nicotine dependence; Z79.82 Long term (current) use of aspirin; Z79.51 Long term (current) use of inhaled steroids; Z79.899 Other long term (current) drug therapy; Z88.7 Allergy status to serum and vaccine; Z88.8 Allergy status to other drugs, medicaments and biological substances

== ENCOUNTER 2024-08-10 01:36 | Inpatient (IN) | payer OTHER ==
[2024-08-10] VITALS (7 sets, daily range): BP systolic 106–123; BP diastolic 48–57
[~2024-08-10] VITALS: Ht 162.6 cm; Wt 73.7 kg
[2024-08-10] MEDS ORDERED: Naloxone HCl 0.4MG / ML 1ML Vial ONE (01:39)
[2024-08-10] MEDS ORDERED: Albuterol 2.5 MG/3 ML VIAL INH SCH (01:45)
[2024-08-10] MEDS ORDERED: MethylPREDNISolone Sod Succ 125 MG Vial IV ONE (01:45)
[2024-08-10] MEDS ORDERED: Mag Sulfate 1 GM/D5% 100ML 100 ML IV ONE (01:45)
[2024-08-10 01:53] LABS: PCO2 Venous 70.9 mmHg (38-42)
[2024-08-10 01:54] LABS: pH Blood Venous 7.22 (7.34-7.37)
[2024-08-10 01:58] LABS: BASOPHILS ABSOLUTE AUTO 0.19 K/mm3 (0.00-0.23); BASOPHILS PERCENT AUTO 2 % (0-2); EOSINOPHILS ABSOLUTE AUTO 0.68 K/mm3 (0.00-0.68); EOSINOPHILS PERCENT AUTO 6 % (0-6); Hematocrit 38.1 % (33.0-51.0); Hemoglobin 11.8 g/dL (11.5-16.0); IMMATURE GRAN ABSOLUTE AUTO 0.05 K/mm3 (0.00-0.10); IMMATURE GRAN PERCENT AUTO 1 % (0-1); LYMPHOCYTES ABSOLUTE AUTO 4.45 K/mm3 (0.84-5.20); LYMPHOCYTES PERCENT AUTO 42 % (21-46); MONOCYTES ABSOLUTE AUTO 0.62 K/mm3 (0.16-1.47); MONOCYTES PERCENT AUTO 6 % (4-13); Mean Corpuscular HGB 27.2 pg (26.0-34.0); Mean Corpuscular Volume 88 fL (80-100); Mean Platelet Volume 10.1 fL (9.1-12.4); NEUTROPHILS ABSOLUTE AUTO 4.65 K/mm3 (1.96-9.15); NEUTROPHILS PERCENT AUTO 44 % (41-73); Platelet Count 260 K/mm3 (150-400); RDW Coefficient Variation 13.9 % (11.7-14.2); RDW Standard Deviation 44.9 fL (35.1-46.3); Red Blood Cell Count 4.34 M/mm3 (3.80-5.20); White Blood Cell Count 10.64 K/mm3 (4.00-11.30)
[2024-08-10 02:17] LABS: Albumin, Blood 3.5 g/dL (3.4-5.0); Albumin/Globulin Ratio 1.2 (0.8-1.8); Bilirubin, Total 0.6 mg/dL (0.1-1.0); Bun/Creatinine Ratio 22.6 (12.0-20.0); Calcium, Blood 8.7 mg/dL (8.5-10.1); Creatinine, Blood 0.88 mg/dL (0.40-1.00); Globulin, Blood 2.8 g/dL (2.2-4.0); Potassium, Blood 3.1 mmol/L (3.5-5.5); Total Protein, Blood 6.3 g/dL (6.4-8.2)
[2024-08-10] MEDS ORDERED: Furosemide 10 MG/ML 10ML Vial IV ONE (03:00)
[2024-08-10] MEDS ORDERED: Azithromycin 250 MG Tab PO ONE (04:45)
[2024-08-10] MEDS ORDERED: Ondansetron 4 MG TAB PO PRN (04:50)
[2024-08-10] MEDS ORDERED: Potassium Chloride 20 MEQ TabCR PO ONE (05:00)
[2024-08-10 05:04] LABS: Magnesium, Blood 2.1 mg/dL (1.6-2.4)
[2024-08-10 05:50] LABS: Influenza A, PCR NEGATIVE (NEGATIVE); Influenza B, PCR NEGATIVE (NEGATIVE); Resp Syncytial Virus, PCR NEGATIVE (NEGATIVE); SARS-Cov-2 (COVID-19) PCR, MMC NEGATIVE (NEGATIVE)
[2024-08-10 05:51] LABS: Base Excess Venous 7.1 mmol/L; Bicarbonate Venous 28.8 mmol/L (24.0-30.0); PCO2 Venous 62.9 mmHg (38-42); pH Blood Venous 7.33 (7.34-7.37)
[2024-08-10] MEDS ORDERED: MethylPREDNISolone Sod Succ 125 MG Vial IV SCH ×3 (06:00→12:00)
[2024-08-10] MEDS ORDERED: Lactated Ringer's 1,000 ML IV SCH (06:00)
--- NOTE | 2024-08-10 07:02 | NUR ---
ADMIT NOTE REPORT RECIVED FROM DEIRDRE SANTANA RN @ [facility] 0602 PT ARRIVED FROM ER @ [facility] 0615, PT SELF TRANSFERED TO PCU BED PT IS ALTER AND HOLDING APPROPRIATE CONVERSATION, MOVING ALL EXTREMITES WITH PURPOSE, VSS, LUNGS HAVE CRACKLES T/O WITH WHEEZING/ NO RESPIRTORY DISTRESS. REPORT GIVEN TO DAY SHIFT RN @ [facility] 0700
[2024-08-10] MEDS ORDERED: Albuterol 2.5 MG/3 ML VIAL INH PRN (08:10)
[2024-08-10] MEDS ORDERED: Tiotropium Bromide 2.5 MCG/ACT MIST INHAL (10 ACT/4 GM) INH SCH (08:10)
[2024-08-10] MEDS ORDERED: Mometasone/Formoterol MDI 100/5 mcg 13 GM INH SCH (08:10)
[2024-08-10] MEDS ORDERED: Ipratropium/Albuterol SulF 2.5-0.5MG/3 ML Amp INH SCH (08:10)
[2024-08-10] MEDS ORDERED: Ipratropium Bromide INH 0.02% 0.5 mg/2.5ML Vial INH SCH (08:15)
[2024-08-10] MEDS ORDERED: Enoxaparin 40 MG/0.4 ML SYR SC SCH (09:00)
[2024-08-10] MEDS ORDERED: Empagliflozin 10 MG TAB PO SCH (09:00)
[2024-08-10] MEDS ORDERED: Famotidine 20 MG Tab PO SCH (09:00)
[2024-08-10] MEDS ORDERED: Sacubitril/Valsartan 24 MG-26 MG Tab PO SCH (09:00)
[2024-08-10] MEDS ORDERED: Docusate Sodium 100 MG Cap PO SCH (09:00)
[2024-08-10] MEDS ORDERED: Torsemide 20 MG TAB PO SCH (09:00)
[2024-08-10] MEDS ORDERED: Spironolactone 50 MG Tab PO SCH (09:00)
--- NOTE | 2024-08-10 11:00 | NUR ---
AM NOTE: PT A/O X4 CURRENTLY ON 2L O2 WHILE TRYING TO NAP, RA OTHERWISE. LUNGS SOUND COURSE WITH CRACKLES BILATERllY WITH SHALLOW RESPIRATIONS OFTEN. PT IS PACED WITH HR IN 70s, TRACE EDEMA NOTED ON BILATERAL EXTREMITIES. PT X1 ASSIST WITH THE FWW AND USES A CANE AT HOME. GAVE PT MEDICATIONS PER EMAR THIS MORNING AND PT EXPRESSED CONCERNS OF WHAT SHE WAS TAKING. PT CLARIFIED WITH HER PCP VIA PHONE CALL AND WAS REASSURED OF THE MEDICATIONS GIVEN. PT REQUESTING TO REST NOW, CALL LIGHT WITHIN REACH.
--- NOTE | 2024-08-10 11:21 | NUR ---
"Spiritual care Visit | Pt. Request Pt. is awake in bed and welcomes my visit. This director clinical operations has seen this Pt during past hospitalizations so rapport is quickly re-established. Facilitated an update, and Pt. verbalized her detasils of her care. Pt. verbalized that she pays close attention to her prescription intake. Listen with interest and apathy. Pt. also verbalizes concerns for her grandson who lives with her. Prayed with Pt. anf for her grandson. Pt. verbalized gratitude for the spiritual care visit."
[2024-08-10] MEDS ORDERED: BISA5EC PO (14:58)
[2024-08-10] MEDS ORDERED: LORA10ER PO (14:59)
[2024-08-10] MEDS ORDERED: PANT40 PO (15:02)
[2024-08-10] MEDS ORDERED: Ventolin5 MG/1 ML INH (15:05)
[2024-08-10] MEDS ORDERED: Bisacodyl 5 MG TabEC PO PRN (15:25)
[2024-08-10] MEDS ORDERED: Benzonatate 100 MG Cap PO PRN (16:35)
--- NOTE | 2024-08-10 17:50 | NUR ---
SHIFT SUMMARY: PT A/O X 4, X1 ASSIST FWW TO BSC. PT PACED 90S. PT ROOM AIR, SATS AT 97. PT TOLERATING DIET, RN CALLED IN PTS FOOD ORDER FOR 08/11. PT HAD FAMILY VISIT THROUGHOUT SHIFT. MEDICATED PT PER EMAR. PT SITTING IN BED, CALL WITHIN REACH.
[2024-08-11 00:05] VITALS: BP 112/51
[2024-08-11 03:42] VITALS: BP 115/53
[2024-08-11 04:50] LABS: BASOPHILS PERCENT AUTO 0 % (0-2); EOSINOPHILS PERCENT AUTO 0 % (0-6); Hematocrit 33.3 % (33.0-51.0); Hemoglobin 10.3 g/dL (11.5-16.0); IMMATURE GRAN ABSOLUTE AUTO 0.03 K/mm3 (0.00-0.10); IMMATURE GRAN PERCENT AUTO 0 % (0-1); LYMPHOCYTES ABSOLUTE AUTO 0.64 K/mm3 (0.84-5.20); LYMPHOCYTES PERCENT AUTO 9 % (21-46); MONOCYTES ABSOLUTE AUTO 0.61 K/mm3 (0.16-1.47); MONOCYTES PERCENT AUTO 8 % (4-13); Mean Corpuscular HGB 26.8 pg (26.0-34.0); Mean Corpuscular HGB Conc 30.9 g/dL (31.5-36.5); Mean Corpuscular Volume 87 fL (80-100); NEUTROPHILS PERCENT AUTO 82 % (41-73); Platelet Count 205 K/mm3 (150-400); RDW Coefficient Variation 14.1 % (11.7-14.2); RDW Standard Deviation 43.5 fL (35.1-46.3); Red Blood Cell Count 3.85 M/mm3 (3.80-5.20); White Blood Cell Count 7.28 K/mm3 (4.00-11.30)
[2024-08-11 05:10] LABS: Bun/Creatinine Ratio 30.8 (12.0-20.0); Creatinine, Blood 0.94 mg/dL (0.40-1.00); Potassium, Blood 3.7 mmol/L (3.5-5.5)
[2024-08-11] MEDS ORDERED: Pantoprazole Sodium 40 MG Tab PO SCH (06:00)
[2024-08-11] MEDS ORDERED: Levothyroxine Sodium 0.088 MG Tab PO SCH (06:00)
--- NOTE | 2024-08-11 06:20 | NUR ---
SHIFT SUMMARY PATIENT A&O X4. PATIENT BECAME SHORT OF BREATH AFTER USING BEDSIDE COMMODE, RT CALLED FOR BREATHING TREATMENT. PATIENT WAS ON 2L O2 VIA NC WHILE SLEEPING. VITAL SIGNS ARE STABLE. WILL CONTINUE TO MONITOR.
[2024-08-11 08:13] VITALS: BP 99/65
--- NOTE | 2024-08-11 08:25 | NUR ---
AM NOTE PT ALERT, ORIENTED X4; CALM AND COOPERATIVE WITH CARE. PT RESTING IN BED, UP WITH SBA TO BSC. PT DENIES PAIN, CHEST PAIN/PRESSURE, NAUSEA, DIZZINESS AND NUMB/TINGLING. TELE PACED 90-100'S, BP SOFT, MAP >65, TRACE EDEMA NOTED TO BLE. SPO2 >90% ON 2L O2 VIA NC, LS WHEEZING T/O, CRACKLES TO BASES, SOB WITH EXERTION, REPORTS RECENT BREATHING TX. ABD SOFT, NONTENDER, HYPOACTIVE BT. OTHER VSS. CALL LIGHT WITHIN REACH.
[2024-08-11] MEDS ORDERED: Loratadine 10 MG Tab PO SCH (09:00)
[2024-08-11] MEDS ORDERED: PredniSONE 20 MG Tab PO SCH (09:00)
[2024-08-11 16:16] VITALS: BP 112/48
--- NOTE | 2024-08-11 18:39 | NUR ---
SHIFT SUMMARY PT ON RA T/O SHIFT. UP WITH 1 PERSON ASSIST. NO OTHER ACUTE CHANGES NOTED. UP IN RECLINER THIS AFTERNOON. CALL LIGHT WITHIN REACH.
--- NOTE | 2024-08-11 19:40 | NUR ---
ASSUMPTION OF CARE ASSUMED PT'S CARE AT 1900,BEDSIDE REPORT COMPLETED.PT ADJUSTED IN BED PER PT'S REQUEST.PLAN OF CARE REVIEWED.PT DENIES FURTHER NEEDS.CALL LIGHT AND PT'S ITEMS WITHIN REACH.WILL CONTINUE TO MONITOR.
[2024-08-11 20:25] VITALS: BP 125/51
[2024-08-11 23:32] VITALS: BP 123/87
[2024-08-12 04:24] VITALS: BP 101/54
[2024-08-12 05:18] LABS: BASOPHILS ABSOLUTE AUTO 0.02 K/mm3 (0.00-0.23); BASOPHILS PERCENT AUTO 0 % (0-2); EOSINOPHILS ABSOLUTE AUTO 0.03 K/mm3 (0.00-0.68); EOSINOPHILS PERCENT AUTO 0 % (0-6); Hematocrit 31.1 % (33.0-51.0); Hemoglobin 9.6 g/dL (11.5-16.0); IMMATURE GRAN ABSOLUTE AUTO 0.05 K/mm3 (0.00-0.10); IMMATURE GRAN PERCENT AUTO 1 % (0-1); LYMPHOCYTES ABSOLUTE AUTO 0.91 K/mm3 (0.84-5.20); LYMPHOCYTES PERCENT AUTO 13 % (21-46); MONOCYTES ABSOLUTE AUTO 0.47 K/mm3 (0.16-1.47); MONOCYTES PERCENT AUTO 7 % (4-13); Mean Corpuscular HGB 26.4 pg (26.0-34.0); Mean Corpuscular HGB Conc 30.9 g/dL (31.5-36.5); Mean Corpuscular Volume 86 fL (80-100); NEUTROPHILS PERCENT AUTO 78 % (41-73); Platelet Count 212 K/mm3 (150-400); RDW Coefficient Variation 14.1 % (11.7-14.2); RDW Standard Deviation 43.6 fL (35.1-46.3); Red Blood Cell Count 3.63 M/mm3 (3.80-5.20); White Blood Cell Count 6.78 K/mm3 (4.00-11.30)
[2024-08-12 05:39] LABS: Bun/Creatinine Ratio 38.4 (12.0-20.0); Calcium, Blood 8.9 mg/dL (8.5-10.1); Creatinine, Blood 0.86 mg/dL (0.40-1.00); Potassium, Blood 4.1 mmol/L (3.5-5.5)
--- NOTE | 2024-08-12 06:32 | NUR ---
PT REPORTS THAT SHE HAD A RESTFULL SLEEP.PT UP TO THE COMMODE WITH STANDY ASSIST.PT SOB WITH ACTIVITY,ON 2L WHILE SLEEPING.MAINTAINED OXYGEN SATURATION >92%. COUGH STILL PRESENT WITH LITTLE AMOUNT OF MUCUS PRODUCED.NEBULIZER TREATMENTS GIVEN BY RT ORDERED.WHEEZES PRESENT THROUGHOUT.PT DENIES PAIN,DENIES NEEDS AT THIS TIME.CALL LIGHT AND PT'S ITEMS WITHIN REACH.PT HAD 7 BEAT RUN OF VTACH THIS MORNING,PT ASYMPTOMATIC.WILL GIVE REPORT TO DAYSHIFT NURSE FOR CONTINUITY OF CARE.
--- NOTE | 2024-08-12 07:18 | NUR ---
ASSUMPTION NOTE: THIS RN TO ASSUME CARE OF PATIENT. PATIENT ASLEEP IN BED, EASILY AROUSABLE. DENIED NEEDING ANYTHING AT THIS TIME, HAS CALL LIGHT WITHIN REACH & BED IN LOWEST POSITION.
[2024-08-12 07:57] VITALS: BP 122/63
[2024-08-12] MEDS ORDERED: Aspirin 81 MG TabEC PO SCH (09:00)
--- NOTE | 2024-08-12 11:00 | NUR ---
ROUNDED: ROUNDED AND PATIENT IS AWARE THAT PENDING HER WALK AROUND THE UNIT AND HOW SHE FEELS PATIENT WILL BE OKAY TO GO HOME TODAY. PATIENT TO CALL HER SON WHO WILL BE HER RIDE.
[2024-08-12 11:57] VITALS: BP 110/80
--- NOTE | 2024-08-12 12:00 | NUR ---
UPDATE: PATIENT WAS WALKED AROUND THE UNIT WITH PCT AND DID GREAT. PATIENT STATED "IT FELT GOOD TO WALK AROUND"DENIED FEELING SHORT OF BREATH TOO MUCH ONLY ONCE SHE WAS TRYING TO GET SITUATED IN HER BED.
[2024-08-12] MEDS ORDERED: BENZ100A PO (13:04)
[2024-08-12] MEDS ORDERED: PRED20 PO (13:06)
--- NOTE | 2024-08-12 13:19 | NUR ---
DISCHARGE PACKET: THIS RN WENT OVER DISCHARGE PACKET WITH PATIENT. PATIENT AWARE SHE WILL BE GOING HOME TODAY, SON TO BE RIDE. PATIENT TO CARROT GRADER INSPECTOR NEW PRESCRITPTIONS FROM [employer] THEY WERE ALREADY FAXED. TELE TAKEN OFF AND PATIENT AWAIITNG FOR SON TO GRAB HER SHOULD BE AROUND 15:00-16:00.
--- NOTE | 2024-08-12 15:40 | NUR ---
DISCHARGE NOTE: PATIENT LEFT VIA WHEELCHAIR WITH SON RIDE. PATIENT TOOK ALL PERSONAL BELONGINGS AND DISCHARGE PAPERWORK THAT WAS ALREADY EXPLAINED TO HER, SEE PREVIOUS NOTE FOR MORE INFORMATION. PATIENT AWARE THAT MEDICATIONS WERE SENT TO [facility] PER HER REQUEST.
== END 2024-08-12 15:50 | disposition home or self-care (01) | DRG 189 ==
LOC: ER 01:36 → PCU 06:07
PROVIDERS: Family Medicine; Student in an Organized Health Care Education/Training Program; ADMIT Student in an Organized Health Care Education/Training Program
PROC: 5A09357 Assistance with Respiratory Ventilation, Less than 24 Consecutive Hours, Continuous Positive Airway Pressure (ICD-10-PCS; principal; 2024-08-10)
DX: J96.21 Acute and chronic respiratory failure with hypoxia (principal); I50.23 Acute on chronic systolic (congestive) heart failure; J44.1 Chronic obstructive pulmonary disease with (acute) exacerbation; I42.0 Dilated cardiomyopathy; I42.8 Other cardiomyopathies; J96.22 Acute and chronic respiratory failure with hypercapnia; Z66 Do not resuscitate; E87.6 Hypokalemia; I11.0 Hypertensive heart disease with heart failure; Z96.642 Presence of left artificial hip joint; Z99.81 Dependence on supplemental oxygen; Z88.7 Allergy status to serum and vaccine; Z88.8 Allergy status to other drugs, medicaments and biological substances; Z79.82 Long term (current) use of aspirin; Z79.890 Hormone replacement therapy; Z79.1 Long term (current) use of non-steroidal anti-inflammatories (NSAID); Z79.51 Long term (current) use of inhaled steroids; Z79.2 Long term (current) use of antibiotics; Z98.1 Arthrodesis status; Z87.891 Personal history of nicotine dependence; Z95.810 Presence of automatic (implantable) cardiac defibrillator
CPT/HCPCS: 0241U; 36415; 71045; 80048; 80053; 82803; 83735; 83880; 84484; 85025; 93005; 93010; 94640; 94644; 94660; 94664; 94762; 96365; 96375; 99285-25; A9270; J1650; J1940; J2310; J2919; J3475; J7512

== ENCOUNTER 2024-11-20 09:21 | Day surgery (SDC) | payer OTHER ==
[~2024-11-20] VITALS: Ht 165.1 cm; Wt 72.6 kg
[~2024-11-20 09:21] MED LIST changes: +BISA5EC PO; +LORA10ER PO; +Ventolin5 MG/1 ML INH
[2024-11-20] MEDS ORDERED: TRAM50 (10:01)
[2024-11-20] MEDS ORDERED: Phenylephrine HCl 10mg/ml 1 ml Vial ONE (10:47)
[2024-11-20 11:33] VITALS: BP 106/52
== END 2024-11-20 11:41 | disposition home or self-care (01) ==
LOC: ORSCSDS 09:21
PROVIDERS: Specialist
PROC: 0DB78ZX Excision of Stomach, Pylorus, Via Natural or Artificial Opening Endoscopic, Diagnostic (ICD-10-PCS; principal; 2024-11-20 10:45)
DX: K25.9 Gastric ulcer, unspecified as acute or chronic, without hemorrhage or perforation (principal); C85.10 Unspecified B-cell lymphoma, unspecified site; K21.9 Gastro-esophageal reflux disease without esophagitis; I10 Essential (primary) hypertension; I50.9 Heart failure, unspecified; Z79.899 Other long term (current) drug therapy
CPT/HCPCS: 88305; 88323; 88341; 88342; J2371; J2704; J7120

== ENCOUNTER 2024-12-11 02:33 | Inpatient (IN) | payer OTHER ==
[~2024-12-11 02:33] MED LIST changes: +TRAM50
[2024-12-11] MEDS ORDERED: Albuterol 2.5 MG/3 ML VIAL INH SCH (02:40)
[2024-12-11 02:47] LABS: pH Blood Venous 7.23 (7.34-7.37)
[2024-12-11 03:00] LABS: BASOPHILS ABSOLUTE AUTO 0.15 K/mm3 (0.00-0.23); BASOPHILS PERCENT AUTO 2 % (0-2); EOSINOPHILS ABSOLUTE AUTO 0.70 K/mm3 (0.00-0.68); EOSINOPHILS PERCENT AUTO 7 % (0-6); Hematocrit 37.5 % (33.0-51.0); Hemoglobin 11.3 g/dL (11.5-16.0); IMMATURE GRAN ABSOLUTE AUTO 0.07 K/mm3 (0.00-0.10); IMMATURE GRAN PERCENT AUTO 1 % (0-1); LYMPHOCYTES ABSOLUTE AUTO 4.13 K/mm3 (0.84-5.20); LYMPHOCYTES PERCENT AUTO 44 % (21-46); MONOCYTES ABSOLUTE AUTO 0.61 K/mm3 (0.16-1.47); MONOCYTES PERCENT AUTO 6 % (4-13); Mean Corpuscular HGB Conc 30.1 g/dL (31.5-36.5); Mean Corpuscular Volume 89 fL (80-100); NEUTROPHILS ABSOLUTE AUTO 3.80 K/mm3 (1.96-9.15); NEUTROPHILS PERCENT AUTO 40 % (41-73); NRBC ABSOLUTE 0.00 K/mm3 (0.00-0.02); NRBC Auto 0.0 /100 WBC (0.0-0.2); Platelet Count 320 K/mm3 (150-400); RDW Coefficient Variation 13.7 % (11.7-14.2); RDW Standard Deviation 44.6 fL (35.1-46.3)
[2024-12-11 03:29] LABS: Alanine Aminotransfer (ALT/SGP 16.0 U/L (12-78); Albumin, Blood 3.2 g/dL (3.4-5.0); Albumin/Globulin Ratio 0.9 (0.8-1.8); Anion Gap 11.0 mmol/L (3-11); Aspartate Aminotrans (AST/SGOT 30.0 U/L (12-37); Bilirubin, Total 0.5 mg/dL (0.1-1.0); Blood Urea Nitrogen 17.0 mg/dL (8-24); CO2, Blood 25.0 mmol/L (21-32); Calcium, Blood 8.4 mg/dL (8.5-10.1); Chloride, Blood 106.0 mmol/L (98-108); Creatinine, Blood 0.96 mg/dL (0.40-1.00); Globulin, Blood 3.4 g/dL (2.2-4.0); Glucose, Blood 264.0 mg/dL (70-99); Potassium, Blood 4.0 mmol/L (3.5-5.5); Sodium, Blood 138.0 mmol/L (136-145); Total Protein, Blood 6.6 g/dL (6.4-8.2)
[2024-12-11] MEDS ORDERED: Ipratropium/Albuterol SulF 2.5-0.5MG/3 ML Amp INH SCH (04:50)
--- NOTE | 2024-12-11 08:40 | NUR ---
PT ARRIVED TO UNIT FROM ED VIA GURNEY. SHE IS A&Ox4 AND ABLE TO MAKE NEEDS KNOWN. SHE IS ON 2LNC W/O2 SATS > 92%. SHE AMBULATES W/FWW A SBA. USING BSC FOR THE RESTROOM. NO NEEDS OR CONCERNS NOTED @ THIS TIME. BED IN LOW POSITION AND CALL LIGHT IN REACH.
--- NOTE | 2024-12-11 08:45 | NUR ---
SUPPORTIVE VISIT WITH ATTEMPTED GOC CONVERSATION. PT HAS MULTIPULE ER/ADMISSION VISITS THIS YEAR FOR HYPOXIC/HYPERCAPNIC EPISODES. 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 PT IS NOT INTERESTED IN CHANGING CARE PLAN AT THIS TIME. CONTINUING EDUCATION ON COPD/CHF SYMPTOM MANAGEMENT BEFORE SHE GETS TO AN ACUTE HYPOXIC EVENT. PT WAS ABLE TO TEACH BACK THE IMPORTANCE OF USING NEBULIZER ORDERED AND MAINTAINING A HEART HEALTHY DIET TO AVOID FLUID OVERLOAD. PT ASKED THIS PC RN TO NOTIFY HER GDTR SARAH OF HER CURRENT ADMISSION. GTDR NOTIFIED. PC TO REMAIN AVAILABLE NEEDED. CONTINUE WITH CURRENT TX AT THIS TIME.
[2024-12-11 08:48] VITALS: BP 107/80
[2024-12-11] MEDS ORDERED: Enoxaparin 40 MG/0.4 ML SYR SC SCH (09:00)
[2024-12-11] MEDS ORDERED: Lactobacil 2-S.Thermo-Bifido 1 1 Cap PO SCH (09:00)
[2024-12-11 10:47] LABS: pH Blood Venous 7.34 (7.34-7.37)
[2024-12-11 11:36] VITALS: BP 13/59
[2024-12-11] MEDS ORDERED: CORLANOR5 MG PO (11:40)
[2024-12-11 15:51] VITALS: BP 130/72
--- NOTE | 2024-12-11 16:55 | NUR ---
Upon receiving a referral for spiritual care, I visited the patient. She talks at length about her life growing up in [place], her family unit complications and her medical problems. She shares about her Mandaen allison, her membership at [employer] and how she gains encouragment and strength from her prayers. Her son Melquiades comes to visit his mother. He has some slowness and is emotionally distressed by the events that led to the patient's admission to the hospital. I normalize the feelings and fears that Melquiades is processing and provided therapeutic listening, anxiety containment and prayer for the patient. Both the patient and Melquiades responded well and showed signs of greater peace. They voiced appreciation for the visit.
[2024-12-11 20:32] VITALS: BP 118/49
[2024-12-11] MEDS ORDERED: Sacubitril/Valsartan 49 MG/51 MG Tab PO SCH (21:00)
[2024-12-12] VITALS (7 sets, daily range): BP systolic 102–133; BP diastolic 46–74
[2024-12-12] MEDS ORDERED: Albuterol 2.5 MG/3 ML VIAL ONE (01:22)
[2024-12-12] MEDS ORDERED: Albuterol 2.5 MG/3 ML VIAL INH PRN (01:25)
[2024-12-12] MEDS ORDERED: Albuterol 2.5 MG/3 ML VIAL INH SCH (02:00)
[2024-12-12 03:45] LABS: BASOPHILS ABSOLUTE AUTO 0.01 K/mm3 (0.00-0.23); BASOPHILS PERCENT AUTO 0 % (0-2); EOSINOPHILS ABSOLUTE AUTO 0.00 K/mm3 (0.00-0.68); EOSINOPHILS PERCENT AUTO 0 % (0-6); Hematocrit 31.9 % (33.0-51.0); Hemoglobin 10.1 g/dL (11.5-16.0); IMMATURE GRAN ABSOLUTE AUTO 0.02 K/mm3 (0.00-0.10); IMMATURE GRAN PERCENT AUTO 0 % (0-1); LYMPHOCYTES ABSOLUTE AUTO 0.78 K/mm3 (0.84-5.20); LYMPHOCYTES PERCENT AUTO 12 % (21-46); MONOCYTES ABSOLUTE AUTO 0.57 K/mm3 (0.16-1.47); MONOCYTES PERCENT AUTO 9 % (4-13); Mean Corpuscular HGB Conc 31.7 g/dL (31.5-36.5); Mean Corpuscular Volume 86 fL (80-100); NEUTROPHILS ABSOLUTE AUTO 4.99 K/mm3 (1.96-9.15); NEUTROPHILS PERCENT AUTO 78 % (41-73); NRBC ABSOLUTE 0.00 K/mm3 (0.00-0.02); NRBC Auto 0.0 /100 WBC (0.0-0.2); Platelet Count 220 K/mm3 (150-400); RDW Coefficient Variation 13.7 % (11.7-14.2); RDW Standard Deviation 42.5 fL (35.1-46.3)
[2024-12-12 04:13] LABS: Anion Gap 9.0 mmol/L (3-11); Blood Urea Nitrogen 26.0 mg/dL (8-24); CO2, Blood 28.0 mmol/L (21-32); Calcium, Blood 8.9 mg/dL (8.5-10.1); Chloride, Blood 102.0 mmol/L (98-108); Creatinine, Blood 0.91 mg/dL (0.40-1.00); Glucose, Blood 117.0 mg/dL (70-99); Potassium, Blood 3.9 mmol/L (3.5-5.5); Sodium, Blood 135.0 mmol/L (136-145)
--- NOTE | 2024-12-12 06:26 | NUR ---
SHIFT SUMMARY: PT A&OX4, PLEASANT AND COOPERATIVE OF CARE. VSS ON 2L VIA NC, SATS >93%. PT DYSPNEIC WITH ACTIVITY. V-PACED IN THE 80'S, HR INCREASES TO THE 140'S WITH EXERTION. C/O PAIN TO HER ANKLES, MEDICATED WITH PRN 650 MG PO TYLENOL. TOLERATING A CONS CARB DIET. X1 ASSIST TO BSC. VOIDING ADEQUATE AMOUNTS OF DARK YELLOW URINE. NO BM THIS SHIFT. BED IN LOWEST POSITION, CALL LIGHT WITHIN REACH. CALLS APPROPRIATELY AND IS ABLE TO ADVOCATE NEEDS EFFECTIVELY.
[2024-12-12] MEDS ORDERED: CefTRIAXone Sodium 1,000 MG in NS 100 ML IV SCH (06:55)
[2024-12-12] MEDS ORDERED: Torsemide 20 MG TAB PO SCH (09:00)
[2024-12-12] MEDS ORDERED: Sacubitril/Valsartan 49 MG/51 MG Tab PO SCH (09:05)
--- NOTE | 2024-12-12 11:31 | NUR ---
Pt is sitting up in bed, talking with her ragman Parvez. STates that her breathing feels "less wheezy" than this morning; however, to auscultation it is wheezy throughout, no less than this morning, but her respiratory rate is closer to normal than it was. She is not dyspneic at rest. States that she still feels very weak.
--- NOTE | 2024-12-12 17:44 | NUR ---
Pt had stable vital signs today and stable oxygen needs, remaining on her home dose of O2 @ 2 l/min. Lung sounds with wheezing, still ongoing. Flutter valve pt reports good success with improved congestion and ability to cough up mucous after using it. Status changed from PCU to medical without telemetry.
--- NOTE | 2024-12-12 22:43 | NUR ---
PATIENT TRANSFERRED TO [facility]. REPORT GIVENT TO YOLANDA Wood RN FOR ASSUMPTION OF CARE.
[2024-12-13 02:47] VITALS: BP 116/60
--- NOTE | 2024-12-13 06:39 | NUR ---
SHIFT SUMMARY PT IS ALERT AND ORIENTED TIMES 2-3. PT IS ADMITTED FOR COPD EXACERBATION WITH RESPIRATORY FAILURE. PT IS STAND BY ASSIST TO BATHROOM. PT IS ON 2 L O2 WHILE SLEEPING. PT IS ACHS BLOOD SUGARS PT IS RECEPTIVE TO CARE AND APPEARS TO HAVE SLEPT THROUGHOUT THE NIGHT. PT BED IS IN LOW POSITION, RAILS TIMES TWO, AND CALL LIGHT WITHIN REACH.
[2024-12-13 06:49] LABS: BASOPHILS ABSOLUTE AUTO 0.03 K/mm3 (0.00-0.23); BASOPHILS PERCENT AUTO 1 % (0-2); EOSINOPHILS ABSOLUTE AUTO 0.07 K/mm3 (0.00-0.68); EOSINOPHILS PERCENT AUTO 1 % (0-6); Hematocrit 33.7 % (33.0-51.0); Hemoglobin 10.5 g/dL (11.5-16.0); IMMATURE GRAN ABSOLUTE AUTO 0.05 K/mm3 (0.00-0.10); IMMATURE GRAN PERCENT AUTO 1 % (0-1); LYMPHOCYTES ABSOLUTE AUTO 1.15 K/mm3 (0.84-5.20); LYMPHOCYTES PERCENT AUTO 18 % (21-46); MONOCYTES ABSOLUTE AUTO 0.53 K/mm3 (0.16-1.47); MONOCYTES PERCENT AUTO 8 % (4-13); Mean Corpuscular HGB Conc 31.2 g/dL (31.5-36.5); Mean Corpuscular Volume 87 fL (80-100); NEUTROPHILS ABSOLUTE AUTO 4.65 K/mm3 (1.96-9.15); NEUTROPHILS PERCENT AUTO 72 % (41-73); NRBC ABSOLUTE 0.00 K/mm3 (0.00-0.02); NRBC Auto 0.0 /100 WBC (0.0-0.2); Platelet Count 274 K/mm3 (150-400); RDW Coefficient Variation 14.1 % (11.7-14.2); RDW Standard Deviation 44.5 fL (35.1-46.3)
[2024-12-13 07:16] LABS: Anion Gap 5.0 mmol/L (3-11); Blood Urea Nitrogen 22.0 mg/dL (8-24); CO2, Blood 32.0 mmol/L (21-32); Calcium, Blood 8.8 mg/dL (8.5-10.1); Chloride, Blood 106.0 mmol/L (98-108); Creatinine, Blood 0.76 mg/dL (0.40-1.00); Glucose, Blood 77.0 mg/dL (70-99); Potassium, Blood 4.1 mmol/L (3.5-5.5); Sodium, Blood 139.0 mmol/L (136-145)
[2024-12-13 07:25] VITALS: BP 125/56
[2024-12-13] MEDS ORDERED: NS 250 ML IV PRN (09:00)
--- NOTE | 2024-12-13 14:32 | NUR ---
THIS RN GAVE REPORT TO BRANDON CELAYA. BELIA TO ASSUME CARE OF PT.
[2024-12-13] MEDS ORDERED: CEFP200 PO (15:43)
[2024-12-13] MEDS ORDERED: DOXY100 PO (15:43)
[2024-12-13] MEDS ORDERED: GUAI600T33 PO (15:43)
[2024-12-13] MEDS ORDERED: PRED20 PO (15:44)
[2024-12-13] MEDS ORDERED: VISBIOME 112.51 EACH PO (15:44)
--- NOTE | 2024-12-13 16:04 | NUR ---
THIS RN TO ASSUME CARE OF PT AT 1431. REPORT RECEIVED FROM BRANDON GONZALES.
--- NOTE | 2024-12-13 18:19 | NUR ---
SHIFT SUMMARY SINCE ASSUMPTION OF CARE, NO ACUTE ISSUES. PT HAS ORDERS TO DISCHARGE AND WAITING ON FAMILY TO COME AND PICK HER UP. MEDICATIONS FAXED TO THE PHARMACY OF HER CHOICE, IV REMOVED. DISCHARGE INFORMATION AND EDUCATION REVIEWED WITH THE PT. SHE VERBALIZED UNDERSTANDING. PERSONAL BELONGINGS RETURNED, MEDICATIONS FROM THE PHARMACY RETURNED TO THE PT. PT'S SON IS ON HIS WAY TO PICK HER UP AND BRING HER PERSONAL CLOTHES.
== END 2024-12-13 18:55 | disposition home or self-care (01) | DRG 189 ==
LOC: ER 02:33 → ERHOLD 04:47 → MEDS 04:47 → PCU 04:47 → MEDS 12-12 22:40 → ENPENDDIS 12-13 14:48 → MEDS 12-13 18:55
PROVIDERS: Emergency Medicine; Internal Medicine; ADMIT Student in an Organized Health Care Education/Training Program
PROC: 5A09357 Assistance with Respiratory Ventilation, Less than 24 Consecutive Hours, Continuous Positive Airway Pressure (ICD-10-PCS; principal; 2024-12-11)
PROC: 3E03329 Introduction of Other Anti-infective into Peripheral Vein, Percutaneous Approach (ICD-10-PCS; 2024-12-11)
DX: J96.21 Acute and chronic respiratory failure with hypoxia (principal); I42.9 Cardiomyopathy, unspecified; J44.1 Chronic obstructive pulmonary disease with (acute) exacerbation; I50.22 Chronic systolic (congestive) heart failure; C85.93 Non-Hodgkin lymphoma, unspecified, intra-abdominal lymph nodes; J96.22 Acute and chronic respiratory failure with hypercapnia; E78.5 Hyperlipidemia, unspecified; E03.9 Hypothyroidism, unspecified; Z66 Do not resuscitate; D64.9 Anemia, unspecified; R73.9 Hyperglycemia, unspecified; I11.0 Hypertensive heart disease with heart failure; I49.5 Sick sinus syndrome; K29.70 Gastritis, unspecified, without bleeding; B96.81 Helicobacter pylori [H. pylori] as the cause of diseases classified elsewhere; Z90.710 Acquired absence of both cervix and uterus; Z90.89 Acquired absence of other organs; Z98.890 Other specified postprocedural states; Z95.0 Presence of cardiac pacemaker; Z96.642 Presence of left artificial hip joint; Z90.49 Acquired absence of other specified parts of digestive tract; Z98.1 Arthrodesis status; Z87.891 Personal history of nicotine dependence; Z79.890 Hormone replacement therapy; Z79.899 Other long term (current) drug therapy; Z88.7 Allergy status to serum and vaccine; Z88.8 Allergy status to other drugs, medicaments and biological substances
CPT/HCPCS: 36415; 71045; 80048; 80053; 82803; 82947; 84484; 85025; 87070; 87205; 93005; 93010; 94640; 94660; 94664; 94760; 94761; 94762; 96374; 99285-25; A9270; J0696; J1650; J2919; J7050; J7512